=== PATIENT | male | born 1965 | race African-American/Black ===

== ENCOUNTER → 2021-12-19 | Day surgery (SDC) | payer OTHER ==
[~2021-12-19] VITALS: Ht 185.4 cm; Wt 124.7 kg
[~2021-12-19] MED LIST: BASAGLAR K100 UNIT/1 SC; BENAZEPRIL HCL40 MG PO; CARDURA8 MG PO; GLUCOTROL10 MG PO; PRILOSEC20 MG PO; TIADYLT ER180 MG PO; TOPROL XL 25MG25 MG PO
[2021-12-19 10:26] LABS: HCT 20.4 % (42.0-52.0); MCH 21.2 pg (25.0-31.0); MCHC 28.9 g/dL (32.0-36.0); MCV 73.4 fL (78.0-100.0); MPV 10.3 fL (6.0-9.5); RBC 2.78 M/uL (4.70-6.00); RDW 23.9 % (11.5-14.0); WBC 8.1 K/uL (4.0-10.5)
[2021-12-19 10:29] LABS: HGB 5.9 g/dl (13.2-18.0)
[2021-12-19 10:56] LABS: ALBUMIN 3.1 g/dL (3.4-5.0); BILIRUBIN - TOTAL 0.3 mg/dL (0.2-1.0); BUN/CREAT RATIO (CALC) 18.9 RATIO; CREATININE 0.95 mg/dL (0.67-1.17); GLOBULIN (CALCULATION) 3.5 g/dL; TOTAL PROTEIN 6.6 g/dL (6.4-8.2)
== END | disposition home or self-care (01) ==
LOC: FAS 09:35
PROVIDERS: Surgery
DX: D50.0 Iron deficiency anemia secondary to blood loss (chronic) (principal); K29.50 Unspecified chronic gastritis without bleeding; K31.9 Disease of stomach and duodenum, unspecified; B96.81 Helicobacter pylori [H. pylori] as the cause of diseases classified elsewhere; K21.9 Gastro-esophageal reflux disease without esophagitis; I10 Essential (primary) hypertension; E11.9 Type 2 diabetes mellitus without complications; Z79.899 Other long term (current) drug therapy
CPT/HCPCS: 36415; 80053; J1610; J2250; J2704; J3010; J7120; P9016